=== PATIENT | female | born 1965 | race Caucasian/White ===

== ENCOUNTER → 2022-04-28 | Outpatient (CLI) | payer BC ==
[2022-04-28 19:14] LABS: C Reactive Protein <0.30 mg/dL (0.00-0.80); Rheumatoid Factor, Qnt <10 IU/mL (0-15); Uric Acid 3.1 mg/dL (2.9-7.7)
[2022-04-28 19:29] LABS: Erythrocyte Sedimentation Rate 2 mm/Hr (0-30)
[2022-04-28 19:34] LABS: HCT 41.5 % (37.2-46.3); HGB 13.3 g/dL (12.0-15.0); MCH 31.2 pg (27.0-32.0); MCV 97.4 fL (80.0-97.0); Mean Platelet Volume 11.9 fL (9.5-12.2); NRBC Per 100 WBC 0 /100 WBCS (0.0-0.0); Platelet Count 175 X 10*3/uL (140-440); RBC 4.26 X 10*6/uL (4.10-5.20); RDW 12.1 % (11.5-14.5); WBC 5.55 X 10*3/uL (4.50-10.00)
== END | disposition home or self-care (01) ==
LOC: LABWHC1 12:14
PROVIDERS: ATTEND Podiatrist Foot & Ankle Surgery
DX: Z00.00 Encounter for general adult medical examination without abnormal findings (principal)
CPT/HCPCS: 36415; 84550; 85027; 85652; 86038; 86140; 86431